=== PATIENT | male | born 1960 | race American Indian/Alaskan Native ===

== ENCOUNTER 2016-04-18 12:51 | Emergency (ER) | payer MEDICARE ==
[2016-04-18 13:20] VITALS: BP 119/63
[2016-04-18 13:47] LABS: Hematocrit 38.5 % (35.5-45.6); Hemoglobin 13.2 gm/dl (11.8-15.2); Mean Corpuscular HGB Conc 34 % (32-34); Mean Corpuscular Hemoglobin 28 pg (28-32); Mean Corpuscular Volume 81 fl (84-94); Red Blood Count 4.76 M/mm3 (3.65-5.03); Red Cell Distribution Width 16.5 % (13.2-15.2); White Blood Count 10.4 K/mm3 (4.5-11.0)
[2016-04-18 13:55] LABS: BUN/Creatinine Ratio 17.27; Blood Urea Nitrogen 19 mg/dL (9-20); Calcium 9.2 mg/dL (8.4-10.2); Carbon Dioxide 28 mmol/L (22-30); Chloride 97.1 mmol/L (98-107); Glucose 88 mg/dL (75-100); Potassium 3.8 mmol/L (3.6-5.0); Sodium 138 mmol/L (137-145)
[2016-04-18 14:02] LABS: Anion Gap 17 mmol/L
[2016-04-18 14:33] LABS: Blastocytes % (Manual) 0 %
[2016-04-18 14:35] LABS: Platelet Count 170 K/mm3 (140-440)
[2016-04-18 14:36] LABS: Anisocytosis 1+; Poikilocytosis 3+; Target Cells 3+
[2016-04-18 14:37] LABS: Diff Status Complete; Large Platelets Few; Platelet Estimate Appears Decreased; Schistocytes Rare
== END 2016-04-18 16:00 | disposition left against medical advice (07) ==
LOC: ED 12:51
DX: R07.9 Chest pain, unspecified (principal); Z53.21 Procedure and treatment not carried out due to patient leaving prior to being seen by health care provider
CPT/HCPCS: 36415; 80048; 84484; 85007; 85025; 93005; 93010

== ENCOUNTER 2016-07-18 11:45 | Emergency (ER) | payer MEDICARE | END 2016-07-18 12:33 | disposition left against medical advice (07) | LOC: ED 11:45 | DX: R22.0 Localized swelling, mass and lump, head (principal); Z53.21 Procedure and treatment not carried out due to patient leaving prior to being seen by health care provider ==

== ENCOUNTER 2016-07-19 09:41 | Emergency (ER) | payer MEDICARE ==
--- NOTE | 2016-07-19 11:39 | Emergency Department Report ---
ED ENT HPI - General Chief complaint: Sore Throat Stated complaint: RT SIDE FACIAL SWELLING Time Seen by Provider: 07/19/16 10:56 Source: patient Mode of arrival: Ambulatory Limitations: No Limitations - History of Present Illness Initial comments: This is a 55-year-old male that presents with right 1st and 2nd molar caries. Patient complains of right-sided face pain. Stated it started 4 days ago. He stated has a history of dental caries but denies seeing a dentist. Patient's of is symptoms include aching with a level of 8 out of 10 in pain. Patient denies any fever, chills, headache, shortness of breath, chest pain, numbness or tingling. Patient denies any pus or drainage. This patient has a history of hypertension but denies taking treatment for it. Patient denies any difficulty swallowing. Denies drooling. MD complaint: tooth pain (1st and 2nd molars) -: Gradual, days(s) (4) Location: tooth # (1 and 2) Severity: mild Severity scale (0 -10): 8 Quality: aching Consistency: constant Improves with: NSAID Worsens with: eating, other (touching) Context-Epistaxis: history of similar Context- Dental: history of dental caries, poor dental care Associated Symptoms: toothache. denies: fever, cough, gum swelling, pain with swallowing, sore throat, tinnitus, hearing loss, discharge from ear, rhinorrhea - Related Data Previous Rx's Medication Instructions Recorded Last Taken Type Lisinopril/Hydrochlorothiazide 1 each PO DAILY #30 tablet 02/13/14 02/01/15 22: 00 Rx [Zestoretic 10-12.5 mg] Albuterol Sulfate [Ventolin HFA] 2 puff IH Q4H PRN #1 hfa.aer.ad 01/19/16 Unknown Rx Carvedilol [Coreg] 6.25 mg PO BID #30 tablet 01/19/16 Unknown Rx Furosemide [Lasix TAB] 40 mg PO QDAY #30 tablet 01/19/16 Unknown Rx Ipratropium/Albuterol Sulfate 1 ampul IH Q6HRT PRN #30 ampul.neb 01/19/16 Unknown Rx [Duoneb 0.5 mg-3 mg/3 ml Soln] Spironolactone [Aldactone] 25 mg PO QDAY #30 tablet 01/19/16 Unknown Rx Tiotropium [Spiriva] 18 mcg IH QDAY #1 box 01/19/16 Unknown Rx Amoxicillin/K Clav Tab [Augmentin 1 tab PO Q12HR 10 Days 07/19/16 Unknown Rx 875 mg] Allergies Allergy/AdvReac Type Severity Reaction Status Date / Time No Known Allergies Allergy Verified 01/10/16 13:40 ED Dental HPI - General Chief complaint: Sore Throat Stated complaint: RT SIDE FACIAL SWELLING Time Seen by Provider: 07/19/16 10:56 Source: patient Mode of arrival: Ambulatory Limitations: No Limitations - Related Data Previous Rx's Medication Instructions Recorded Last Taken Type Lisinopril/Hydrochlorothiazide 1 each PO DAILY #30 tablet 02/13/14 02/01/15 22: 00 Rx [Zestoretic 10-12.5 mg] Albuterol Sulfate [Ventolin HFA] 2 puff IH Q4H PRN #1 hfa.aer.ad 01/19/16 Unknown Rx Carvedilol [Coreg] 6.25 mg PO BID #30 tablet 01/19/16 Unknown Rx Furosemide [Lasix TAB] 40 mg PO QDAY #30 tablet 01/19/16 Unknown Rx Ipratropium/Albuterol Sulfate 1 ampul IH Q6HRT PRN #30 ampul.neb 01/19/16 Unknown Rx [Duoneb 0.5 mg-3 mg/3 ml Soln] Spironolactone [Aldactone] 25 mg PO QDAY #30 tablet 01/19/16 Unknown Rx Tiotropium [Spiriva] 18 mcg IH QDAY #1 box 01/19/16 Unknown Rx Amoxicillin/K Clav Tab [Augmentin 1 tab PO Q12HR 10 Days 07/19/16 Unknown Rx 875 mg] Allergies Allergy/AdvReac Type Severity Reaction Status Date / Time No Known Allergies Allergy Verified 01/10/16 13:40 ED Review of Systems ROS: Stated complaint: RT SIDE FACIAL SWELLING Other details as noted in HPI Constitutional: denies: chills, fever Eyes: denies: eye pain, eye discharge, vision change ENT: denies: ear pain, throat pain Respiratory: denies: cough, shortness of breath, wheezing Cardiovascular: denies: chest pain, palpitations Endocrine: no symptoms reported Gastrointestinal: denies: abdominal pain, nausea, diarrhea Genitourinary: denies: urgency, dysuria Musculoskeletal: denies: back pain, joint swelling, arthralgia Skin: denies: rash, lesions Neurological: denies: headache, weakness, paresthesias Psychiatric: denies: anxiety, depression Hematological/Lymphatic: denies: easy bleeding, easy bruising ED Past Medical Hx - Past Medical History Hx Hypertension: Yes Hx Congestive Heart Failure: No Hx Diabetes: No Hx Asthma: No Hx COPD: Yes Additional medical history: Chronic back pain - Surgical History Additional Surgical History: back - Social History Smoking Status: Former Smoker Substance Use Type: None - Medications Home Medications: Home Medications Medication Instructions Recorded Confirmed Last Taken Type Lisinopril/Hydrochlorothiazide 1 each PO DAILY #30 tablet 02/13/14 01/17/16 22:00 Rx [Zestoretic 10-12.5 mg] Albuterol Sulfate [Ventolin HFA] 2 puff IH Q4H PRN #1 hfa.aer.ad 01/19/16 Unknown Rx Carvedilol [Coreg] 6.25 mg PO BID #30 tablet 01/19/16 Unknown Rx Furosemide [Lasix TAB] 40 mg PO QDAY #30 tablet 01/19/16 Unknown Rx Ipratropium/Albuterol Sulfate 1 ampul IH Q6HRT PRN #30 ampul.neb 01/19/16 Unknown Rx [Duoneb 0.5 mg-3 mg/3 ml Soln] Spironolactone [Aldactone] 25 mg PO QDAY #30 tablet 01/19/16 Unknown Rx Tiotropium [Spiriva] 18 mcg IH QDAY #1 box 01/19/16 Unknown Rx Amoxicillin/K Clav Tab [Augmentin 1 tab PO Q12HR 10 Days 07/19/16 Unknown Rx 875 mg] ED Physical Exam - General Limitations: No Limitations General appearance: alert, in no apparent distress - Head Head exam: Present: atraumatic, normocephalic - Eye Eye exam: Present: normal appearance - ENT ENT exam: Present: normal exam, normal orophraynx, mucous membranes moist, TM's normal bilaterally. Absent: other (no signs of abscess, swelling, or erythema. First and second molar caries. Uvula midline.) - Neck Neck exam: Present: normal inspection - Respiratory Respiratory exam: Present: normal lung sounds bilaterally. Absent: respiratory distress - Cardiovascular Cardiovascular Exam: Present: regular rate, normal rhythm. Absent: systolic murmur, diastolic murmur, rubs, gallop - GI/Abdominal GI/Abdominal exam: Present: soft, normal bowel sounds - Rectal Rectal exam: Present: deferred - Extremities Exam Extremities exam: Present: normal inspection - Back Exam Back exam: Present: normal inspection - Neurological Exam Neurological exam: Present: alert, oriented X3 - Psychiatric Psychiatric exam: Present: normal affect, normal mood - Skin Skin exam: Present: warm, dry, intact, normal color. Absent: rash ED Course Vital Signs 07/19/16 10:17 Temperature 98.0 F Pulse Rate 69 Respiratory 20 Rate Blood Pressure 144/100 O2 Sat by Pulse 96 Oximetry ED Medical Decision Making - Medical Decision Making Ed course: 55-year-old male that presents with first and second molar caries 1- patient was informed to follow-up with the dentist within 24 hours. I also prescribed Augmentin by mouth. I instructed the patient sick for a course of antibiotics as prescribed. Patient received computer resources including [facility], [facility], and [facility] dentist. 2- at the time of discharge the patient did not seem toxic or ill in appearance. Patient agrees to discharge treatment plan the plan of care. Patient will follow with primary care doctor and his dentist. No further questions noted by the patient. Critical care attestation.: If time is entered above; I have spent that time in minutes in the direct care of this critically ill patient, excluding procedure time. ED Disposition Clinical Impression: Dental caries Disposition: DISCHARGED TO HOME OR SELFCARE Is pt being admited?: No Does the pt Need Aspirin: No Condition: Stable Instructions: Dental Caries (ED) Additional Instructions: Please follow up with a dentist within 24 hours or if symptoms worsen report back to emergency room Take full course of antibiotics as prescribed. Prescriptions: Amoxicillin/K Clav Tab [Augmentin 875 mg] 1 tab PO Q12HR 10 Days Referrals: PRIMARY CARE, [Primary Care Provider] - 3-5 Days [facility] [Outside] - 24 Hours Forms: Work/School Release Form(ED)
[2016-07-19 11:52] VITALS: BP 140/88
== END 2016-07-19 11:50 | disposition home or self-care (01) ==
LOC: ED 09:41
DX: K02.9 Dental caries, unspecified (principal); I10 Essential (primary) hypertension; J44.9 Chronic obstructive pulmonary disease, unspecified; Z87.891 Personal history of nicotine dependence
CPT/HCPCS: 99282

== ENCOUNTER 2016-11-15 01:51 | Emergency (ER) | payer MEDICARE ==
[2016-11-15 02:25] VITALS: BP 125/83
--- NOTE | 2016-11-15 03:05 | XRay Report ---
FINAL REPORT PROCEDURE: XR WRIST 2V RT TECHNIQUE: LEFT wrist radiographs, AP and lateral views. HISTORY: RIGHT WRIST PAIN COMPARISON: No prior studies are available for comparison. FINDINGS: Fracture(s)and/or Dislocation(s): None. Alignment: Normal. Joint space(s): There is significant narrowing of the joint space Soft tissues: Normal. Bone mineralization: Normal. Foreign bodies: None. IMPRESSION: No evidence of an acute fracture or dislocation. Moderate arthritis.
--- NOTE | 2016-11-15 03:09 | XRay Report ---
FINAL REPORT PROCEDURE: XR HAND 2V RT TECHNIQUE: Right hand radiographs, AP, lateral, and oblique views. CPT 25420 HISTORY: RIGHT HAND PAIN COMPARISON: No prior studies are available for comparison. FINDINGS: Fracture (s) and/or Dislocation(s): None . Alignment: Normal . Joint space(s): Moderate narrowing of the joint spaces.. Soft tissues: Normal . Bone mineralization: Normal . Foreign bodies: None . IMPRESSION: No evidence of an acute fracture or dislocation. Moderate arthritis.
== END 2016-11-15 04:30 | disposition left against medical advice (07) ==
LOC: ED 01:51
DX: M79.601 Pain in right arm (principal); R22.31 Localized swelling, mass and lump, right upper limb; Z53.21 Procedure and treatment not carried out due to patient leaving prior to being seen by health care provider

== ENCOUNTER 2017-04-11 15:29 | Emergency (ER) | payer MEDICARE ==
[2017-04-11 16:08] VITALS: BP 148/106
--- NOTE | 2017-04-11 17:09 | XRay Report ---
FINAL REPORT EXAM: XR CHEST ROUTINE 2V HISTORY: Shortness of breath TECHNIQUE: Chest two views PRIORS: None. FINDINGS: Cardiac silhouette is borderline enlarged. There is apical pleural parenchymal scarring. There is mild bilateral interstitial prominence which could be acute or chronic finding. No confluent infiltrates are identified. No pleural fluid collection seen. There is flattening of the diaphragm suggesting underlying COPD IMPRESSION: Findings suggestive of underlying C OPD. Borderline cardiomegaly Interstitial opacities which could be acute or chronic finding
== END 2017-04-11 17:00 | disposition left against medical advice (07) ==
LOC: ED 15:29
DX: R06.02 Shortness of breath (principal); Z53.21 Procedure and treatment not carried out due to patient leaving prior to being seen by health care provider
CPT/HCPCS: 71046; 93005; 93010

== ENCOUNTER 2017-05-12 15:00 | Emergency (ER) | payer MEDICARE | END 2017-05-12 15:30 | disposition left against medical advice (07) | LOC: ED 15:00 | DX: R06.09 Other forms of dyspnea (principal); Z53.21 Procedure and treatment not carried out due to patient leaving prior to being seen by health care provider ==